=== PATIENT | male | born 2000 | race Caucasian/White ===

== ENCOUNTER 2025-05-20 12:44 | Emergency (ER) | payer MEDICAID ==
[~2025-05-20] VITALS: Ht 180.3 cm; Wt 72.7 kg
[2025-05-20 13:16] VITALS: BP 124/82; PULSE 62; RESP 18; O2SAT 98
--- NOTE | 2025-05-20 14:25 | Physician Documentation ---
History of Present Illness ~ Chief Complaint: Laceration Stated Complaint: SUTURE REMOVAL Time Seen by MD: 14:02 HPI Patient is seen today with complaints of needing sutures removed from volar aspect of the right forearm. Patient had sutures placed eight or nine days ago. Patient states this wound was sutured previously and popped open and this is the 2nd time that it was repaired via suture repair. Patient denies any fever or chills in his no other concern or complaint at this time. Medication Reconciliation Allergies: Coded Allergies: No Known Allergies (Unverified , 05/20/25) Review of Systems Constitutional: Denies: chills, fever, weakness Eyes: Denies: pain, blurred vision ENT: Denies: ear pain, nose pain, throat pain, mouth pain Respiratory: Denies: cough, shortness of breath Cardiovascular: Denies: chest pain, palpitations Gastrointestinal: Denies: abdominal pain, nausea, vomiting Genitourinary: Denies: burning, dysuria Male Genitalia: Denies: penile discharge, testicular pain Neurological: Denies: headache, dizziness Musculoskeletal: Denies: pain, swelling Integumentary: Denies: rash, lesions Allergic/Immunologic: Denies: hives, itching Hematologic/Lymphatic: Denies: no symptoms reported Psychiatric: Denies: depression, anxiety Physical Exam Vital Signs: Temperature: 97.0, Source: Temporal, Heart Rate: 62, Respiratory Rate: 18, BP: 124/82, Pulse Oximetry: 98, Weight: 72.730 Physical Exam General: Awake and Alert, no acute distress. HEENT: Conjunctiva pink, Sclera clear, Mucus Membranes moist. Neck: Supple without masses and tenderness. Resp: Unlabored. Lungs clear to auscultation bilaterally. Heart: Regular Rate and rhythm, normal S1 and S2 without murmur, rub or gallop. Musculoskeletal: Patient on exam does have sutures in place of 6 cm laceration to the volar aspect of right forearm midshaft. There is a small amount of erythema surrounding the sutures but no sign of cellulitis or secondary bacterial infection. Laceration appears to be well healed. Patient is neurovascularly intact distally. Motor function intact distally Extremities: No cyanosis,clubbing or edema. Skin: Warm and Dry. Progress Results/Orders Results/Orders Vital Signs 05/20/25 13:16 Temp 97.0 Pulse 62 Resp 18 B/P (MAP) 124/82 Pulse Ox 98 Medical Decision Making Findings Patient is seen today with complaints of needing sutures removed from volar aspect of the right forearm. Patient had sutures placed eight or nine days ago. Patient states this wound was sutured previously and popped open and this is the 2nd time that it was repaired via suture repair. Patient denies any fever or chills in his no other concern or complaint at this time. Patient did have sutures removed and Steri-Strips placed over laceration of the parasite. Patient will follow up with primary care in 5-7 days if no better as needed sooner. Return to ED with any worsening, concerning or changing symptoms. Departure Disposition: 01 HOME / SELF CARE / HOMELESS Impression: Primary Impression: Visit for suture removal Condition: Improved Discharge Instructions: Laceration Care, Adult, [id number] Additional Instructions: Patient did have sutures removed and Steri-Strips placed over laceration of the parasite. Patient will follow up with primary care in 5-7 days if no better as needed sooner. Return to ED with any worsening, concerning or changing symptoms. Referrals: NO PRIMARY CARE PROVIDER (PCP) Signature Scribe Signature: No scribe Attestation: No scribe JAMEEL BRICEÑO PAC May 20, 2025 14:25
[2025-05-20 14:34] VITALS: TEMP 97
== END 2025-05-20 14:36 | disposition home or self-care (01) ==
LOC: ER 12:45
DX: S51.811D Laceration without foreign body of right forearm, subsequent encounter (principal); X58.XXXD Exposure to other specified factors, subsequent encounter
CPT/HCPCS: 99281